=== PATIENT | female | born 1990 | race African-American/Black ===

== ENCOUNTER 2017-11-04 20:52 | Outpatient (CLI) | payer OTHER ==
[~2017-11-04 20:52] MED LIST: AMOXICILLIN875 MG PO; Ceftin PO; Feosol PO; MOTRIN600 MG PO; Micronor,Nor-Q-D,Err PO; Motrin PO; PEN-VEE K,VEET500 MG PO; PREFERA-OB P1 TABLET PO; TRAMADOL HCL50 MG PO; ULTRAM50 MG PO; Vicodin,Norco 5/325 PO
[2017-11-04 21:31] VITALS: BP 127/61
== END 2017-11-04 22:00 | disposition home or self-care (01) ==
LOC: LDRP-OP 20:52 → 2WEST 20:54
DX: O20.8 Other hemorrhage in early pregnancy (principal); Z3A.21 21 weeks gestation of pregnancy
CPT/HCPCS: 59025; G0378

== ENCOUNTER 2017-11-06 18:46 | Inpatient (IN) | payer OTHER ==
[~2017-11-06] VITALS: Ht 172.7 cm; Wt 141.4 kg
[2017-11-06] VITALS (8 sets, daily range): BP systolic 115–136; BP diastolic 55–82
[2017-11-06 19:35] LABS: BASOPHIL (%) 0.3 % (0-1); EOSINOPHIL (%) 0.8 % (0-5); EOSINOPHIL COUNT 0.1 K/uL (0-0.3); HEMATOCRIT 35.1 % (36.0-46.0); HEMOGLOBIN 11.5 G/DL (11.9-15.5); IMMATURE GRANULOCYTE (%) 1.3 % (0.0-0.7); LYMPHOCYTE (%) 16.6 % (15-42); LYMPHOCYTE COUNT 2.4 K/uL (1.0-2.8); MCH 26.8 PG (29.0-34.0); MCHC 32.8 G/DL (30.0-36.0); MCV 81.8 FL (83-99); MONOCYTE (%) 8.5 % (3-12); MONOCYTE COUNT 1.2 K/uL (0-0.8); NEUTROPHIL (%) 72.5 % (45-76); NEUTROPHIL COUNT 10.4 K/uL (1.8-6.4); PLATELET COUNT 266 K/uL (156-360); RBC DIS.WIDTH-CV 14.5 % (11.8-14.6); RBC DIS.WIDTH-SD 42.4 % (39-53); RED BLOOD COUNT 4.29 M/uL (3.80-5.20); WHITE BLOOD COUNT 14.4 K/uL (4.1-10.2)
[2017-11-06 20:07] LABS: ALBUMIN 3.6 G/DL (3.2-4.8); CHLORIDE 104 MEQ/L (99-109); POTASSIUM 4.6 MEQ/L (3.7-5.4); SODIUM 134 MEQ/L (136-147); TOTAL BILIRUBIN 0.5 MG/DL (0.0-1.0)
[2017-11-06 20:13] LABS: ALKALINE PHOSPHATASE 85 IU/L (3-129); ALT (GPT) 7 IU/L (3-49); AST (GOT) 19 IU/L (2-34); CREATININE 0.7 MG/DL (0.6-1.3); GFR ESTIMATE (CALCULATED) > 59 mL/min/; GLUCOSE 104 mg/dL (70-99); TOTAL PROTEIN 6.9 G/DL (6.4-8.3); UREA NITROGEN (BUN) 8 mg/dL (9-23)
[2017-11-06 20:19] LABS: PTT 23.7 SEC (25-37)
[2017-11-06 20:24] LABS: FIBRINOGEN 599 mg/dL (150-450)
[2017-11-06 23:24] LABS: AMPHETAMINE NEGATIVE (500 ng/mL); BARBITURATES NEGATIVE (200 ng/mL); BENZODIAZEPINES NEGATIVE (150 ng/mL); BUPRENORPHINE NEGATIVE (10 ng/mL); COCAINE NEGATIVE (150 ng/mL); METHADONE NEGATIVE (200 ng/mL); METHAMPHETAMINE NEGATIVE (500 ng/mL); OPIATES (MORPHINE) NEGATIVE (100 ng/mL); OXYCODONE NEGATIVE (100 ng/mL); PHENCYCLIDINE NEGATIVE (25 ng/mL); PROPOXYPHENE NEGATIVE (300 ng/mL); THC CANNABINOIDS NEGATIVE (50 ng/mL); TRICYCLIC ANTIDEPRESSANTS NEGATIVE (300 ng/mL)
[2017-11-07] MEDS ORDERED: PRENATAL TABLE1 EAC3 PO (03:56)
[2017-11-07 05:37] LABS: BASOPHIL (%) 0.1 % (0-1); EOSINOPHIL (%) 0.6 % (0-5); EOSINOPHIL COUNT 0.1 K/uL (0-0.3); HEMATOCRIT 30.6 % (36.0-46.0); IMMATURE GRANULOCYTE (%) 1.1 % (0.0-0.7); LYMPHOCYTE (%) 13.8 % (15-42); MCH 26.5 PG (29.0-34.0); MCHC 32.7 G/DL (30.0-36.0); MCV 81.2 FL (83-99); MONOCYTE (%) 8.5 % (3-12); MONOCYTE COUNT 1.2 K/uL (0-0.8); NEUTROPHIL (%) 75.9 % (45-76); PLATELET COUNT 230 K/uL (156-360); RBC DIS.WIDTH-CV 14.3 % (11.8-14.6); RBC DIS.WIDTH-SD 41.4 % (39-53); RED BLOOD COUNT 3.77 M/uL (3.80-5.20); WHITE BLOOD COUNT 14.5 K/uL (4.1-10.2)
[2017-11-07 07:30] VITALS: BP 122/64
[2017-11-07] MEDS ORDERED: IBUPROFEN800 MG PO (08:16)
[2017-11-07] MEDS ORDERED: ENDOCET 5-3251 EACH PO (08:16)
== END 2017-11-07 10:50 | disposition home or self-care (01) | DRG 775 ==
LOC: LDRP-OP 18:46 → 2WEST 18:47 → LDRP-OP 04-10 22:15
PROVIDERS: Obstetrics & Gynecology
PROC: 10E0XZZ Delivery of Products of Conception, External Approach (ICD-10-PCS; principal; 2017-11-06)
DX: O60.12X0 Preterm labor second trimester with preterm delivery second trimester, not applicable or unspecified (principal); E66.01 Morbid (severe) obesity due to excess calories; O99.214 Obesity complicating childbirth; O42.912 Preterm premature rupture of membranes, unspecified as to length of time between rupture and onset of labor, second trimester; Z37.0 Single live birth; Z3A.22 22 weeks gestation of pregnancy; Z68.42 Body mass index [BMI] 45.0-49.9, adult
CPT/HCPCS: 59025; 80053; 85025; 85384; 85610; 85730; 86850; 86900; 86901; 87070; 87075; 87205; 88307; G0378; J7120